=== PATIENT | male | born 1960 | race Caucasian/White ===

== ENCOUNTER → 2017-09-06 | Outpatient (CLI) | payer OTHER ==
[2017-09-06 10:07] LABS: ALBUMIN 4.1 gm/dl (3.4-5.0); ALT/SGPT 38 U/L (12-78); BLOOD UREA NITROGEN 16 mg/dl (7-18); CALCIUM 9.2 mg/dl (8.5-10.1); CARBON DIOXIDE 31 mmol/L (21-32); CHOLESTEROL 254 mg/dl (0-200); CREATININE 1.22 mg/dl (0.60-1.40); GLUCOSE 102 mg/dl (70-99); POTASSIUM 3.9 mmol/L (3.5-5.1); SODIUM 136 mmol/L (136-145)
[2017-09-06 10:15] LABS: ALKALINE PHOSPHATASE 84 U/L (45-117); AST/SGOT 18 U/L (15-37); LDL CHOLESTEROL CALCULATED 184 mg/dl; TOTAL PROTEIN 7.9 gm/dl (6.4-8.2)
== END | disposition home or self-care (01) ==
LOC: C.LAB1850 08:40
PROVIDERS: ATTEND Nurse Practitioner Family
DX: Z13.220 Encounter for screening for lipoid disorders (principal); Z13.1 Encounter for screening for diabetes mellitus; R03.0 Elevated blood-pressure reading, without diagnosis of hypertension

== ENCOUNTER 2020-03-10 14:09 | Observation (INO) ==
[~2020-03-10 14:09] MED LIST: CEFAZOLIN 3000MG 72.5 ML IV SCH
--- NOTE | 2020-03-10 14:35 | Emergency Department Note ---
Impression & Plan Incarcerated umbilical hernia ED Provider Note NAME: MARBELLA CARCAMO AGE: 60 SEX: M : 1960 ARRIVES VIA: Walk-In INFORMANT: Patient, ED PROVIDER(S): Sidney Reno MD Chief Complaint: Concern for hernia, doctor referral HPI: Patient did present from the outpatient setting. The patient was seen by Dr. Cowan in the outpatient setting was referred for an ultrasound which was completed which did show a bowel containing umbilical hernia. The patient has complaint is mild discomfort 1 out of 10 in pain and just describes it as more of something that is "there." The patient denies any nausea vomiting, fevers, chills, chest pains, shortness of breath. The patient has had a recent bowel movement without any blood in the urine or stool. Patient is not taken anything for the pain. Touching it does not necessarily make it any more uncomfortable but it is no longer able to be reduced as it had before. The patient is only noticed this in the last several days. ROS: See HPI for pertinent positives and negatives. A total of 10 systems were reviewed and otherwise negative. Past medical history: See below Surgical history: See below Social history: See below Physical Exam: GENERAL: Wearing a mask. NAD, non-toxic. EYE EXAM: Normal conjunctiva. PERRL, no anisocoria and EOM's grossly intact w/o pain. NECK: Supple, no nuchal rigidity, no adenopathy, non-tender. No signs of meningismus. LUNGS: Clear to auscultation. Normal chest wall mechanics. HEART: NSR, no MRG. ABDOMEN: Abdomen soft, nonreducible umbilical hernia with no TTP, normo-active bowel sounds, no masses, no rebound or guarding. BACK: No CVA TTP. SKIN: No rashes and no bruising. UPPER EXTREMITIES: Upper extremities are grossly normal. LOWER EXTREMITIES: Grossly normal, no edema. NEURO EXAM: A&O x3, cranial nerves II-XII grossly intact, normal speech, moves all 4 extremities on command w/o issue. Differential diagnoses: Appendicitis, testicular torsion, infections, diverticulitis, UTI, obstruction, mesenteric ischemia, aortic pathology, inflammatory bowel disease, renal colic, PUD, pancreatitis, biliary pathology, hernia, volvulus, constipation, as well as other pathologies. Course: Patient was seen and evaluated the bedside. Full history physical exam was performed. EKG: None Imaging Studies: Radiology results as stated below per my review in the radiologist's interpretation: Ultrasound completed prior to arrival: ULTRASOUND ABDOMINAL WALL CLINICAL HISTORY: Umbilical mass. COMPARISON STUDY: No priors. FINDINGS: Real-time, grayscale, and color flow sonography of the umbilical soft tissues is performed at the site of interest. There is a nonreducible umbilical hernia which contains a segment of bowel. The abdominal wall defect measures 1.3 cm. IMPRESSION: There is a nonreducible bowel containing umbilical hernia at the site of interest. Electronically signed by: Lenny Schmitt M.D. 03/10/2020 1:03 PM Dictated: 03/10/20 1301 Transcribed: 03/10/20 1301 Cardiac monitoring: An order was placed for continuous cardiac monitoring. The monitor shows a rate of 91 with sinus rhythm. MDM: Patient does present with outpatient ultrasound which does show a nonreducible bowel containing umbilical hernia. Patient does not have much in terms of pain so I did speak with the on-call general surgeon Graciela Burroughs PA-C. She did evaluate the patient was unable to reduce the hernia. The patient was planned for the operating room and subsequently admitted by Dr. Ann of general surgery. Past Med/Surg History Medical History Elevated fasting glucose Hyperlipidemia Obesity Umbilical hernia Surgical History H/O arthroscopy of shoulder History of appendectomy Social History Smoking Status: Former smoker Tobacco Type: Cigarettes Preferred Language: Nauruan Feels Safe at Home: Yes Allergies Allergies Allergy/AdvReac Type Severity Reaction Status Date / Time No Known Allergies Allergy Unknown Verified 01/03/20 10:00 Results & Data (ED) Vital Signs Vital Signs - 24 hr 03/10/20 14:21 03/10/20 15:19 03/10/20 15:54 Temperature 36.9 C 36.7 C Temperature Source Oral Oral Pulse Rate 99 H Pulse Rate [Left Finger] 91 H 92 H Pulse Rhythm Regular Pulse Rhythm [Left Finger] Regular Pulse Strength Normal Pulse Strength [Left Finger] Normal Respiratory Rate 18 21 20 Respiratory Effort / Characteristics Non-Labored Spontaneous Non-Labored Spontaneous Respiratory Depth Normal Normal Respiratory Pattern Regular Regular Blood Pressure 156/107 H Blood Pressure [Right Arm] 168/93 H 177/98 H Blood Pressure Mean 123 Blood Pressure Mean [Right Arm] 118 124 Blood Pressure Position Sitting Blood Pressure Position [Right Arm] Semi-fowlers Pulse Oximetry 94 95 95 Oxygen Delivery Method Room Air Room Air Sepsis Recent Fever Within 48 Hours No Sepsis New/Unexplained Change in Mental Status N/A Sepsis Action Taken by Nursing No Action Required Home Medications Current Medication List: was personally reviewed by me Laboratory Data Attestation: I reviewed the patient's lab results. Result diagrams: 03/10/20 15:28 03/10/20 15:28 Lab Results 03/10/20 03/10/20 03/10/20 Range/Units 15:22 15:22 15:28 WBC (4.8-10.8) K/uL RBC (4.7-6.1) M/uL Hgb (14.0-18.0) g/dL Hct (42-52) % MCV (80-100) fL MCH (25-34) pg MCHC (32-36) g/dL RDW Std Deviation (36.4-46.3) fL RDW Coeff of Ede (11.5-14.5) % Plt Count (130-400) K/uL MPV (7.4-10.4) fL Immature Gran % (Auto) % Neut % (Auto) % Lymph % (Auto) % Marshall % (Auto) % Eos % (Auto) % Baso % (Auto) % Neut # (Auto) (1.4-6.5) K/uL Lymph # (Auto) (1.2-3.4) K/uL Marshall # (Auto) (0.11-0.59) K/uL Eos # (Auto) (0-0.5) K/uL Baso # (Auto) (0-0.2) K/uL Immature Gran # (Auto) (0.00-0.02) K/uL Sodium (136-145) mmol/L Potassium (3.5-5.1) mmol/L Chloride (98-107) mmol/L Carbon Dioxide (21-32) mmol/L Anion Gap (3-11) BUN (7-18) mg/dl Creatinine (0.6-1.4) mg/dl Est Cr Clr Drug Dosing ml/min Est GFR ( Amer) Est GFR (Non-Af Amer) BUN/Creatinine Ratio (10-20) Glucose (70-99) mg/dl Calcium (8.5-10.1) mg/dl Total Bilirubin (0.2-1) mg/dl AST (15-37) U/L ALT (12-78) U/L Alkaline Phosphatase (45-117) U/L Total Protein (6.4-8.2) gm/dl Albumin (3.4-5.0) gm/dl Globulin (2.5-4.0) gm/dl Albumin/Globulin Ratio (0.9-2) Lipase (73-393) U/L COVID-19 Eval Order Covid19 IDNow Replaced by [facility] SARS-CoV-2, RNA, NAAT NEGATIVE (NEGATIVE) Blood Type O Positive Blood Type Recheck Antibody Screen NEGATIVE 03/10/20 03/10/20 03/10/20 Range/Units 15:28 15:28 15:57 WBC 6.43 (4.8-10.8) K/uL RBC 4.98 (4.7-6.1) M/uL Hgb 15.9 (14.0-18.0) g/dL Hct 47.2 (42-52) % MCV 94.8 (80-100) fL MCH 31.9 (25-34) pg MCHC 33.7 (32-36) g/dL RDW Std Deviation 46.5 H (36.4-46.3) fL RDW Coeff of Ede 13.5 (11.5-14.5) % Plt Count 191 (130-400) K/uL MPV 11.0 H (7.4-10.4) fL Immature Gran % (Auto) 0.2 % Neut % (Auto) 47.5 % Lymph % (Auto) 41.7 % Marshall % (Auto) 9.0 % Eos % (Auto) 1.4 % Baso % (Auto) 0.2 % Neut # (Auto) 3.06 (1.4-6.5) K/uL Lymph # (Auto) 2.68 (1.2-3.4) K/uL Marshall # (Auto) 0.58 (0.11-0.59) K/uL Eos # (Auto) 0.09 (0-0.5) K/uL Baso # (Auto) 0.01 (0-0.2) K/uL Immature Gran # (Auto) 0.01 (0.00-0.02) K/uL Sodium 139 (136-145) mmol/L Potassium 3.9 (3.5-5.1) mmol/L Chloride 105 (98-107) mmol/L Carbon Dioxide 30 (21-32) mmol/L Anion Gap 4.0 (3-11) BUN 15 (7-18) mg/dl Creatinine 1.29 (0.6-1.4) mg/dl Est Cr Clr Drug Dosing 92.8 ml/min Est GFR ( Amer) 70.4 Est GFR (Non-Af Amer) 60.7 BUN/Creatinine Ratio 11.6 (10-20) Glucose 96 (70-99) mg/dl Calcium 9.3 (8.5-10.1) mg/dl Total Bilirubin 0.4 (0.2-1) mg/dl AST 21 (15-37) U/L ALT 43 (12-78) U/L Alkaline Phosphatase 104 (45-117) U/L Total Protein 7.9 (6.4-8.2) gm/dl Albumin 4.0 (3.4-5.0) gm/dl Globulin 3.9 (2.5-4.0) gm/dl Albumin/Globulin Ratio 1.0 (0.9-2) Lipase 69 L (73-393) U/L COVID-19 Eval Order SARS-CoV-2, RNA, NAAT (NEGATIVE) Blood Type Blood Type Recheck O Positive Antibody Screen Administered Medications Cefazolin Sodium (Ancef 3000mg) 72.5 mls @ 145 mls/hr IV PREOP RACHEL Stop: 03/11/20 05:59 Last Admin: 03/10/20 16:04 Dose: 145 mls/hr Documented by: [id number] Discharge Plan Visit Data Chief Complaint: Abdominal Pain Stated Complaint: ABD HERNIA, SENT BY [facility]ORS OFFICE ED Provider: Sidney Reno Discharge Problem: Incarcerated umbilical hernia Patient Disposition: Admitted As Inpatient Discharge Instructions Interventions: ED Discharge Assessment Last Done: 03/10/20 15:40
--- NOTE | 2020-03-10 15:18 | History & Physical Report ---
Date of Service I reviewed pt's H/P, labs, CT scan with pt, I recommend to do open repair umbilical hernia, possible mesh , or bowel resection, D/W benefits, risks and alternatives of the surgery, the risks - infection, bleeding, injury bowel,hernia recurrence, complications relate to mesh, pt understood, he agrees with the surgery, I answered all questions, March 10, 2020 Assessment & Plan (1) Incarcerated umbilical hernia: 60 year-old male with history of umbilical hernia for 5-6 years now with incarcerated hernia containing loop of small bowel via abdominal ultrasound. Unable to reduce hernia on examination and with overlying erythema but no signs of infection. Discussed with patient ultrasound findings of loop of small bowel in hernia and the fact that hernia is unreducible and risk of bowel ischemia. Therefore, would recommend surgical repair of hernia with possible bowel resection and possible mesh now. Patient understood and agrees to proceed to operating room. Discussed procedure and risks as well as recovery/lifting restrictions. to OR for open umbilical hernia repair with possible bowel resection and possible mesh will receive 2 gms ancef preop keep npo COVID preop test now Dr. Gutiérrez to obtain consent preop will determine observation vs discharge home intraoperatively Discussed with Dr. gutiérrez who will evaluate patient preoperatively and agrees with above. History of Present Illness Chief Complaint: Incarcerated umbilical hernia containing small bowel Primary Care Provider: Tommy Juan Alberto Clemente is a 60 year-old male with no significant medical history who presented to emergency department from outpatient office setting due to umbilical hernia unable to be reduced. Bryn states he has had hernia for about 5-6 years now and has always been reducible however he noticed today he is unable to reduce the hernia and it is hard. Denies of abdominal pain but has some tenderness when pressing on hernia. No fever, chills, nausea, vomiting, diarrhea, difficulty with bowel movements, blood in stools. Last bowel movement today was normal. Prior history of open appendectomy 8-10 years ago otherwise no other abdominal surgeries. No blood thinning agents. Outpatient ultrasound showed incarcerated umbilical hernia containing loop of small bowel. Allergies Allergy/AdvReac Type Severity Reaction Status Date / Time No Known Allergies Allergy Unknown Verified 01/03/20 10:00 Past Med/Surg History Medical History (Updated 03/10/20 @ 15:15 by Graciela Guajardo PA-C) Elevated fasting glucose Hyperlipidemia Umbilical hernia Surgical History H/O arthroscopy of shoulder History of appendectomy Social History Smoking Status: Former smoker Tobacco Type: Cigarettes Preferred Language: Spanish Feels Safe at Home: Yes Review of Systems Review of Systems: All systems reviewed & are unremarkable except as noted in HPI & below Physical Exam Constitutional: WD/WN, vitals as above no acute distress and not ill appearing Respiratory: normal respiratory effort, lungs clear to auscultation Gastrointestinal (Abdomen): Inspection/Auscultation: abdomen not distended Percussion/Palpation: abdomen soft and + hernia (umbiilcal hernia unreducible with overlying erythema but no induration); abdomen nontender, no guarding and abdomen not rigid Skin: no rashes, warm and dry Psychiatric: A+Ox3, euthymic affect Results & Data Results & Data ([place]) Vital Signs (Past 12 Hours) Vital Signs Temp Pulse Resp BP Pulse Ox 03/10/20 14:21 36.9 C 99 H 18 156/107 H 94 Diagnostic Findings ULTRASOUND ABDOMINAL WALL CLINICAL HISTORY: Umbilical mass. COMPARISON STUDY: No priors. FINDINGS: Real-time, grayscale, and color flow sonography of the umbilical soft tissues is performed at the site of interest. There is a nonreducible umbilical hernia which contains a segment of bowel. The abdominal wall defect measures 1.3 cm. IMPRESSION: There is a nonreducible bowel containing umbilical hernia at the site of interest. Code Status & VTE Plan VTE Prophylaxis Plan VTE Prophylaxis will be ordered: Yes
[2020-03-10] MEDS ORDERED: MEPERIDINE HCL 25 MG/ML CARP/VIAL IV PRN (15:23)
[2020-03-10] MEDS ORDERED: LABETALOL HCL IV 5 MG/ML 20ML IV PRN (15:23)
[2020-03-10] MEDS ORDERED: HYDROmorphone INJ 1 MG/ML SYRINGE IV PRN ×2 (15:23→18:32)
[2020-03-10] MEDS ORDERED: PHENYLEPHRINE 100MCG/ML 5ML SYR IV PRN (15:23)
[2020-03-10] MEDS ORDERED: ONDANSETRON INJ 2 MG/ML 2 ML VIAL IV PRN ×2 (15:23→17:27)
[2020-03-10] MEDS ORDERED: ATROPINE SULFATE 0.1 MG/ML 10ML SYR IV PRN (15:23)
[2020-03-10] MEDS ORDERED: ePHEDrine sulfate 50 MG/ML AMP IV PRN (15:23)
[2020-03-10] MEDS ORDERED: fentaNYL citrate 100 MCG/2 ML VIAL IV PRN (15:23)
[2020-03-10 15:40] LABS: Basophils # (auto) 0.01 K/uL (0-0.2); Basophils % (auto) 0.2 %; Eosinophils # (auto) 0.09 K/uL (0-0.5); Eosinophils % (auto) 1.4 %; Hematocrit (blood only) 47.2 % (42-52); Hemoglobin 15.9 g/dL (14.0-18.0); Immature Granulocytes # (auto) 0.01 K/uL (0.00-0.02); Immature Granulocytes % (auto) 0.2 %; Lymphocytes # (auto) 2.68 K/uL (1.2-3.4); Lymphocytes % (auto) 41.7 %; Mean Corpuscular Hemoglobin 31.9 pg (25-34); Mean Corpuscular Hgb Conc 33.7 g/dL (32-36); Mean Corpuscular Volume 94.8 fL (80-100); Monocytes # (auto) 0.58 K/uL (0.11-0.59); Neutrophils # (auto) 3.06 K/uL (1.4-6.5); Neutrophils % (auto) 47.5 %; Platelet Count 191 K/uL (130-400); RDW Coefficient of Variation 13.5 % (11.5-14.5); RDW Standard Deviation 46.5 fL (36.4-46.3); Red Blood Count 4.98 M/uL (4.7-6.1); White Blood Count 6.43 K/uL (4.8-10.8)
--- NOTE | 2020-03-10 15:42 | History & Physical Bridge Note ---
Date of Service March 10, 2020 History & Physical Bridge Note I have examined the patient, reviewed the History & Physical and in the interval since the performance of the History & Physical I have noted the following changes of clinical significance: no changes noted
[2020-03-10 15:56] LABS: BUN Creatinine Ratio 11.6 (10-20); Calcium 9.3 mg/dl (8.5-10.1); Creatinine Clr Calc Pharmacy 92.8 ml/min; Est GFR (African American) 70.4; Est GFR (Non-African American) 60.7; Potassium 3.9 mmol/L (3.5-5.1)
[2020-03-10] MEDS ORDERED: BUPIVACAINE 0.5 % 5 MG/1 ML MPF 30ML VIAL ONE (15:58)
[2020-03-10] MEDS ORDERED: BACITRACIN OINT 15 GM TUBE ONE (15:58)
[2020-03-10] MEDS ORDERED: LIDOCAINE HCL 1% 20 ML VIAL ONE (15:58)
[2020-03-10 15:59] LABS: Bilirubin,Total 0.4 mg/dl (0.2-1); Globulin 3.9 gm/dl (2.5-4.0); Total Protein 7.9 gm/dl (6.4-8.2)
--- NOTE | 2020-03-10 15:59 | Anesthesiology Consultation ---
Date of Service March 10, 2020 Covid 19 negative today. Assessment & Plan (1) Encounter for pre-operative examination: Chart Review Chart Review: Acceptable Risk for Surgery and Patient NOT seen in Pre Admission Testing Consults Requested none History Surgery Operation Date: 03/10/20 09:55 Proposed Procedures p Open Umbilical Hernia Repair, Possible Bowel Resection, Possible Mesh - Tapan Ann MD Height/Weight Height: 6 ft 3 in Weight: 135.9 kg Allergies Allergy/AdvReac Type Severity Reaction Status Date / Time No Known Allergies Allergy Unknown Verified 01/03/20 10:00 NPO Date Last Intake of Fluids: 03/10/20 Time Last Intake of Fluids: 08:00 Date Last Intake of Solids: 03/10/20 Time Last Intake of Solids: 09:00 Past Medical History Medical History Elevated fasting glucose Hyperlipidemia Obesity Umbilical hernia Past Surgical History Surgical History H/O arthroscopy of shoulder History of appendectomy Social History Smoking Status: Former smoker Physical Exam Vital Signs Last Vital Signs Temp 36.7 C 03/10/20 15:54 Pulse 92 H 03/10/20 15:54 Resp 20 03/10/20 15:54 BP 177/98 H 03/10/20 15:54 Pulse Ox 95 03/10/20 15:54 Testing Laboratory Results 03/10/20 15:28 03/10/20 15:28 Electrocardiogram Date: 03/10/20 Findings: + NSR @ (91)
--- NOTE | 2020-03-10 17:16 | Post Operative Brief Note ---
Immediate Post Op Note v1 Date of Surgery March 10, 2020 Pre & Post Diagnosis Operation Date: 03/10/20 09:55 Pre-Op Diagnosis: Incarcerated Umbilical Hernia Post-Op Diagnosis: Incarcerated Umbilical Hernia I identified the patient and participated in the time-out.: Yes Procedure Operation Date: 03/10/20 09:55 Actual Procedures p Open Umbilical Hernia Repair(Not Applicable) - Tapan Ann MD Surgeon Tapan Ann MD [employer] crm technical lead Estimated Blood Loss 10 Findings Consistent with Post-Op Diagnosis incarcerated umbilical hernia, hernia size is about 1.5x 1.5cm Fluids 1500ml Specimens hernia sac Drains Michael Catheter (16fr inserted by Gaviota Zavala RN without difficulty) Anesthesia Type General Complications none Disposition Accompanied Patient To Recovery: Yes Disposition: Recovery Room Overlapping Procedure I was immediately available: during the entire case.
--- NOTE | 2020-03-10 17:50 | Anesthesiology Progress Note ---
Date of Service March 10, 2020 Anesthesia Post Procedure Vital Signs Vital Signs: Temp Pulse Pulse Pulse Resp BP BP 03/10/20 17:45 76 12 159/93 H 03/10/20 17:35 82 13 144/91 H 03/10/20 17:29 36.2 C L 86 17 148/94 H 03/10/20 15:54 36.7 C 92 H 20 177/98 H 03/10/20 15:19 91 H 21 168/93 H 03/10/20 14:21 36.9 C 99 H 18 156/107 H Pulse Ox 03/10/20 17:45 98 03/10/20 17:35 96 03/10/20 17:29 100 03/10/20 15:54 95 03/10/20 15:19 95 03/10/20 14:21 94 Pain Intensity Abdomen: Pain Intensity: 0 Transfer of Care Handoff Completed per policy Notes Mental Status: alert / awake / arousable Patient Amnestic to Procedure: Yes Nausea / Vomiting: adequately controlled Pain: adequately controlled Airway Patency, RR, SpO2: stable & adequate BP & HR: stable & adequate Hydration State: stable & adequate Anesthetic Complications: no major complications apparent and Pt Satisfied with anesthetic care
[2020-03-10] MEDS ORDERED: OXYCODONE/ACETAMINOPHEN 5mg/325mg TAB PO PRN (18:32)
[2020-03-10] MEDS: LACTATED RINGER'S 1,000 ML IV SCH (20:33)
[2020-03-10] MEDS: CEFAZOLIN 1000MG 1,000 MG/7.5 ML SYR IV SCH (23:55)
[2020-03-11] MEDS: CEFAZOLIN 1000MG 1,000 MG/7.5 ML SYR IV SCH ×4 (00:33→07:27)
--- NOTE | 2020-03-11 03:04 | Operative Report (OR) ---
DATE OF OPERATION: 03/10/2020 PREOPERATIVE DIAGNOSIS: Incarcerated umbilical hernia. POSTOPERATIVE DIAGNOSIS: Incarcerated umbilical hernia. OPERATION: Open repair of incarcerated umbilical hernia. SURGEON: Tapan Ann MD. ANESTHESIA: General. ESTIMATED BLOOD LOSS: About 10 mL. FINDINGS: Incarcerated umbilical hernia. The hernia size is about 1.5 x 1.5 cm. COMPLICATIONS: None. INDICATIONS FOR THE PROCEDURE: This is a 60-year-old gentleman who presented with incarcerated umbilical hernia and I recommended to do the open repair of umbilical hernia, possible mesh. I did talk to the patient about the benefits, the risks, and alternate procedures. I indicated the risks may include but not limited such as bleeding, infection, hernia recurrence, seroma, complications related to mesh, bowel obstruction, injury to the bowel, and patient understands. He signed informed consent and I answered all questions. DETAILS OF PROCEDURE: We brought in the patient to the OR, put the patient in the supine position. The patient received SCDs on bilateral legs to prevent DVT. Also, patient received 2 grams Ancef IV for prophylactic antibiotic. The patient received general anesthesia without difficulty. The abdomen was prepped and draped in routine sterile fashion. After timeout, I made about 6 cm incision just below umbilical. Then we mobilized the hernia sac, found the patient had the incarcerated umbilical hernia. Once we completely mobilized the hernia sac, then we made a small incision on the fascial layer and at this moment we opened the hernia sac and found the patient had it incarcerated with omental fat. We were able to completely remove the omental fat to abdominal cavity. Then, I resected the hernia sac. Then we found the patient had an umbilical hernia, size about 1.5 x 1.5 cm. I decided to use #1 Ethibond, closed interruptedly and then we put the suture, #1 Ethibond, and closed the fascial layer interruptedly. The suture closed nicely, no tension. Hemostasis was obtained. Then I closed the subcutaneous layer by using 2-0 Vicryl interruptedly, closed skin by using staple. Then we put the dressing on. The patient tolerated the procedure well. All the instrument, needle, and sponge counts were correct x2 at the end of the case. The patient transferred to recovery room in stable condition. The hernia sac specimen was sent to pathology. After the procedure, I did talk to the patient about the OR finding and the procedure we did, he understands. I attest to the content of the Intraoperative Record and any orders documented therein. Any exception s are noted below.
[2020-03-11] MEDS: LACTATED RINGER'S 1,000 ML IV SCH (08:11)
--- NOTE | 2020-03-11 08:11 | Surgery Progress Note ---
Date of Service F/U S/P open repair umbilical hernia, POD 1 doing fine, no significant abdominal pain, no nausea, no vomiting, tolerated clear diet, March 11, 2020 Assessment & Plan (1) Incarcerated umbilical hernia: 60 year-old male with history of umbilical hernia for 5-6 years now with incarcerated hernia containing loop of small bowel via abdominal ultrasound. Unable to reduce hernia on examination and with overlying erythema but no signs of infection. Discussed with patient ultrasound findings of loop of small bowel in hernia and the fact that hernia is unreducible and risk of bowel ischemia. Therefore, would recommend surgical repair of hernia with possible bowel resect ion and possible mesh now. Patient understood and agrees to proceed to operating room. Discussed procedure and risks as well as recovery/lifting restrictions. to OR for open umbilical hernia repair with possible bowel resection and possible mesh will receive 2 gms ancef preop keep npo COVID preop test now Dr. Gutiérrez to obtain consent preop will determine observation vs discharge home intraoperatively Discussed with Dr. gutiérrez who will evaluate patient preoperatively and agrees with above. 03/11/2020 8:10AM doing fine, discharge home today, the post-op care instruction was given. F/U 2 week,s [phone] Admission and Anticipated Discharge Date Admission Date: March 10, 2020 Physical Exam Constitutional: WD/WN, vitals as above well developed and well nourished Eyes: PERRL, conjunctivae normal, anicteric sclerae ENMT: external ear and nose normal, oropharynx normal Neck: trachea midline, no thyromegaly Respiratory: normal respiratory effort, lungs clear to auscultation Cardiovascular: RRR, no murmur, no edema Gastrointestinal (Abdomen): normal bowel sounds, soft, nontender, no hepatosplenomegaly incision intact, no redness, no drainage, mild tenderness at incision site, BS + Musculoskeletal: no cyanosis or clubbing, extremities motor strength 5/5 Skin: no rashes, warm and dry Neurologic: patellar DTR's 2+ bilat, sensation intact Psychiatric: Orientation: alert and oriented x 3 Results & Data ([facility]) Vital Signs (Past 12 Hours) Vital Signs Temp Pulse Pulse Resp BP Pulse Ox 03/11/20 07:17 36.5 C 61 16 144/87 H 97 03/11/20 03:36 36.6 C 77 18 148/90 H 95 03/10/20 22:45 36.8 C 87 20 126/90 94 03/10/20 20:15 36.8 C 90 18 142/75 H 95 Laboratory Results Abnormal lab results 03/10/20 03/10/20 Range/Units 15:28 15:28 RDW Std Deviation 46.5 H (36.4-46.3) fL MPV 11.0 H (7.4-10.4) fL Lipase 69 L (73-393) U/L
--- NOTE | 2020-03-11 09:27 | Discharge Summary ---
Date of Service March 11, 2020 Admission HPI Per Admitting Provider Bryn is a 60 year-old male with no significant medical history who presented to emergency department from outpatient office setting due to umbilical hernia unable to be reduced. Bryn states he has had hernia for about 5-6 years now and has always been reducible however he noticed today he is unable to reduce the hernia and it is hard. Denies of abdominal pain but has some tenderness when pressing on hernia. No fever, chills, nausea, vomiting, diarrhea, difficulty with bowel movements, blood in stools. Last bowel movement today was normal. Prior history of open appendectomy 8-10 years ago otherwise no other abdominal surgeries. No blood thinning agents. Outpatient ultrasound showed incarcerated umbilical hernia containing loop of small bowel. Principal Diagnosis Incarcerated umbilical hernia Discharge Data Allergies Allergy/AdvReac Type Severity Reaction Status Date / Time No Known Allergies Allergy Unknown Verified 01/03/20 10:00 Consultations 03/10/20 15:02 ED Decision to Admit Stat Procedures Performed Operation Date: 03/10/20 09:55 Actual Procedures p Open Umbilical Hernia Repair(Not Applicable) - Tapan Ann MD Hospital Course (1) Incarcerated umbilical hernia: Patient was taken to operating room from emergency department for open umbilical hernia repair with possible mesh possible bowel resection by Dr. Ann. Patient found to have incarcerated umbilical hernia containing only omentum and no bowel. Hernia repair with sutures and no mesh given small size. Patient tolerated procedure well and was transferred to recovery room then to medical/surgical floor for postoperative care. His diet was advanced to regular diet. Activity as tolerated. Percocet and breakthrough IV Dilaudid prn pain. POD # 1 vitals stable, afebrile, pain controlled. Patient doing well and was ready for discharge. Discharged home on POD # 1 in stable condition. Total Time Total Time Spent Total Time Spent (In Minutes): 15 Total Time Includes: Examination of the Patient, Discharge Planning and Medication Reconciliation Discharge Plan Discharge Items Patient Disposition: Home - Self-Care Reason For Visit: ABD HERNIA, SENT BY [facility] OFFICE Discharge Diagnosis: S/P Open repair umbilical hernia Condition on Discharge: Good Activity: As commented below Lifting: No more than 25 pounds Lifting Comment: for 4 weeks Bathing: May shower/bathe in 3 days Sexual Activity: After two weeks Exercise/Sports: Rest today Driving/Machine Use: no driving while taking pain medicine, Non-emergency contact: Surgeon Call non-emergency contact if: you have any medication questions, your symptoms worsen, your pain is not controlled, your pain is worsening and your pain is unusual for you Follow-up/Referrals: Tommy Avendano [Primary Care Provider] - Tapan Ann MD [Physician] - 03/24/20 10:30 am (follow up Dr. Ann 2 weeks, Agree-I have documented within the medical record.) Diet: Regular Addtl Attending Provider Instructions: keep the dressing on for 4 days, Pending Studies at Discharge: Yes Studies:: hernia sac pathology report Stand-Alone Forms: My [facility] [employer], Opioid Pain Management, Smoking Cessation Medications and DC Order Prescriptions: New oxycodone-acetaminophen 5-325 mg tablet 1 tab PO Q6H PRN (Reason: pain) Qty: 20 RF: 0 Discharge Orders: Discharge Order (Routine); Ordered 03/11/20 Ordered By: Tapan Babb/Other Patient Handouts: DVT Post Op Prevention Admission Data Admit Date/Time: 03/10/20 17:27 Attending Provider: Tapan Ann Admit Provider: Tapan Ann Primary Care Provider: Tommy Avendano Other Providers: Tapan Ann Other Interventions: Discharge Summary Assessment (RN) Last Done: 03/11/20 08:13
--- NOTE | 2020-03-11 13:45 | Discharge Summary (DS) ---
ADMITTING DIAGNOSES: Incarcerated umbilical hernia. DISCHARGE DIAGNOSES: Same. OPERATION: Open repair incarcerated of umbilical hernia. SURGEON: Dr. Tapan Ann. DETAILS OF DISCHARGE SUMMARY: This is a 60-year-old gentleman who presented to the ED with significant abdominal pain. The ultrasound diagnosis was incarcerated umbilical hernia. We took the patient to the OR and did an open repair incarcerated umbilical hernia, primary closing the umbilical hernia and the patient tolerated the procedure well. The patient is still in hospital overnight. The patient is doing fine. He tolerated clear diet. No nausea, no vomiting. PHYSICAL EXAMINATION: VITAL SIGNS: Temperature is 36.5, respiratory rate is 16, heart rate is 61, blood pressure 144/87, O2 saturation 97% on room air. GENERAL: Alert, awake, oriented x3. HEENT: Normal limitation. NEUROLOGIC: Intact. NECK: No JVD CHEST: Bilateral lungs sound clear. HEART: Normal. HEART: Normal S1, S2, no murmur. ABDOMEN: Soft, nondistended, mild incisional pain. Incision intact and no redness, no drainage, no distention. Bowel sounds positive. EXTREMITIES: No edema. The patient wanted to go home today and we gave the patient reports of all care instructions. The patient understands. I will follow outpatient in 2 weeks.
--- NOTE | 2020-03-11 19:47 | Electrocardiogram Report ---
Test Reason : Blood Pressure : / mmHG Vent. Rate : 091 BPM Atrial Rate : 091 BPM P-R Int : 176 ms QRS Dur : 096 ms QT Int : 380 ms P-R-T Axes : 054 001 031 degrees QTc Int : 467 ms Normal sinus rhythm Normal ECG No previous ECGs available Confirmed by Reji Garcia ([id number]) on 03/11/2020 7:46:50 PM Referred By: Tommy Avendano Confirmed By:Reji Garcia
== END 2020-03-11 09:01 | disposition home or self-care (01) ==
LOC: ED 14:09 → 3W 15:46 → OR 15:46